=== PATIENT | female | born 1930 | race Caucasian/White ===

== ENCOUNTER 2017-02-28 07:59 | Emergency (ER) | payer MEDICARE, MEDICAID ==
[~2017-02-28] VITALS: Ht 157.5 cm; Wt 58.7 kg
[2017-02-28] MEDS ORDERED: ASPIRIN 81 MG CHEW TABLET PO ONE (08:30)
[2017-02-28] MEDS ORDERED: HYDR10TAB PO ×2 (08:35→11:03)
[2017-02-28] MEDS ORDERED: AMLO10TA2 PO ×2 (08:35→11:03)
[2017-02-28] MEDS ORDERED: CALC1CAP31 PO ×2 (08:35→11:03)
[2017-02-28] MEDS ORDERED: OMEP20CA3 PO ×2 (08:35→11:03)
[2017-02-28] MEDS ORDERED: ALLO100T PO (08:35)
[2017-02-28] MEDS ORDERED: LISI40TAB PO ×2 (08:35→11:03)
[2017-02-28] MEDS ORDERED: PROAAER10 INH ×2 (08:35→11:03)
[2017-02-28] MEDS ORDERED: ATOR1TAB21 PO ×2 (08:35→11:03)
[2017-02-28] MEDS ORDERED: LEVO25TA5 PO (08:35)
[2017-02-28] MEDS ORDERED: METO50TA7 PO ×2 (08:35→11:03)
[2017-02-28 09:05] LABS: BASO % 0.4 % (0.0-1.0); EOS # 0.5 K/mm3 (0.0-0.50); EOS % 5.7 % (0.0-3.0); LARGE UNSTAINED CELL # 0.2 K/mm3 (0.0-0.4); LARGE UNSTAINED CELL % 1.7 % (0.0-4.0); LYMPH # 1.4 K/mm3 (1.5-4.5); LYMPH % 15.8 % (24.0-44.0); MEAN CORPUSCULAR HGB CONC 33.1 g/dl (32.0-36.5); MEAN CORPUSCULAR VOLUME 93.8 fl (80.0-96.0); MONO # 0.5 K/mm3 (0.0-0.8); MONO % 5.1 % (0.0-5.0); NEUTROPHILS # 6.3 K/mm3 (1.8-7.7); NEUTROPHILS % 71.5 % (36.0-66.0); PLATELET COUNT, AUTOMATED 241 k/mm3 (150-450); WHITE BLOOD COUNT 8.8 K/mm3 (4.0-10.0)
[2017-02-28 09:13] LABS: ALBUMIN 3.8 GM/DL (3.2-5.2); ALBUMIN/GLOBULIN RATIO 1.23 (1.00-1.93); ALKALINE PHOSPHATASE 56 U/L (45-117); ALT/SGPT 14 U/L (12-78); ANION GAP 12 MEQ/L (8-16); AST/SGOT 11 U/L (15-37); BILIRUBIN,DIRECT < 0.1 MG/DL (0.0-0.2); BILIRUBIN,TOTAL 0.4 MG/DL (0.2-1.0); BLOOD UREA NITROGEN 63 MG/DL (7-18); CARBON DIOXIDE LEVEL 30 MEQ/L (21-32); CHLORIDE LEVEL 104 MEQ/L (98-107); CREATININE FOR GFR 2.35 MG/DL (0.55-1.02); GLOMERULAR FILTRATION RATE 20.8 (>32); GLUCOSE, FASTING 96 MG/DL (83-110); POTASSIUM SERUM 3.5 MEQ/L (3.5-5.1); SODIUM LEVEL 146 MEQ/L (136-145); TOTAL PROTEIN 6.9 GM/DL (6.4-8.2)
--- NOTE | 2017-02-28 09:49 | REP ---
Clinical: Chest pain . Comparison: 04/21/2016 . Technique: AP view Findings: The mediastinum and cardiac silhouette are normal. The lung bailon are clear and without acute consolidation, effusion, or pneumothorax. The skeletal structures are intact and normal. Impression: 1. No acute cardiopulmonary process. Signed by Luis Goins MD 02/28/2017 09:41 A
--- NOTE | 2017-02-28 09:55 | REP ---
Clinical: Chest pain radiating to the back. Findings: The lung bailon demonstrate mild to moderate emphysematous changes and chronic, age appearing interstitial changes with scattered scarring and minimal perihilar bronchiectasis. No focal consolidation, obvious nodule or mass lesion appreciated. No pleural effusion/reaction or pneumothorax. Evaluation of the mediastinum demonstrates significant atherosclerotic changes to the thoracic aorta and coronary arteries without aortic aneurysm, cardiomegaly or pericardial effusion. No axillary, hilar, or mediastinal adenopathy. Musculoskeletal structures demonstrate age-related degenerative change without focal osseous abnormality. Impression: 1. Moderate chronic scarring, interstitial changes and COPD/emphysematous changes with scattered bullae. 2. Significant atherosclerotic changes to the thoracic aorta and coronary arteries without aortic aneurysm. 3. No acute mediastinal or pleuroparenchymal process. Signed by Luis Goins MD 02/28/2017 09:47 A
[2017-02-28] MEDS ORDERED: NITROGLYCERIN 0.3 MG SUBL TAB SL STA (10:00)
--- NOTE | 2017-02-28 10:02 | REP ---
Clinical: Epigastric and abdominal pain radiating to the back. Findings: Lung bases demonstrate chronic changes and scarring along with mild to moderate emphysematous disease. Atherosclerotic changes to the thoracoabdominal aorta and branch vessels noted with ectasia to the infrarenal abdominal aorta measuring 2.7 cm maximal diameter. Liver, spleen, pancreas, and bilateral adrenal glands are normal. The gallbladder is moderately distended and demonstrates gallstones without wall thickening or pericholecystic fluid to suggest acute cholecystitis. The right kidney is atrophic and bilateral polycystic kidney disease is appreciated including hyperdense lesions in the left kidney likely representing complex cysts. There is no evidence for hydroureteronephrosis. The enteric system is without obstruction or acute inflammatory process. Moderate fecal stasis and constipation is appreciated along with fecal impaction to the rectum distended to 6.7 cm maximal diameter. Colonic and sigmoid diverticulosis noted without acute diverticulitis. Normal terminal ileum and appendix identified in the right lower quadrant. Pelvis demonstrates normal bladder and age-appropriate uterus/adnexa. No ascites. No free air. No adenopathy. No obvious mass lesion. Musculoskeletal structures demonstrate age-related degenerative changes without focal osseous abnormality. Impression: 1. Extensive atherosclerotic changes to the aorta and vasculature including infrarenal abdominal aortic ectasia to 2.7 cm maximal diameter. 2. Polycystic appearance of the bilateral kidneys with atrophic right kidney and presumed high density/complex left renal cysts. 3. Fecal stasis and a moderate fecal impaction at the rectum distended to 6.7 cm maximal diameter. 4. Diverticulosis without acute diverticulitis. 5. No ascites, adenopathy, free air, or mass lesion appreciated. Signed by Luis Goins MD 02/28/2017 09:53 A
[2017-02-28] MEDS ORDERED: hydrALAZINE INJ 20 MG/ML VIAL IV STA (10:33)
[2017-02-28] MEDS ORDERED: ALLO10TA PO (11:03)
[2017-02-28] MEDS ORDERED: IRON18TA PO (11:03)
[2017-02-28] MEDS ORDERED: GARL10004 PO (11:03)
[2017-02-28] MEDS ORDERED: CRAN250C2 PO (11:03)
[2017-02-28] MEDS ORDERED: LEVO25TA34 PO (11:03)
[2017-02-28] MEDS ORDERED: VITA100T PO (11:03)
[2017-02-28] MEDS ORDERED: [UNRECOGNIZED DRUG - CODE] PO (11:03)
[2017-02-28] MEDS ORDERED: HYDR25TAB PO (11:03)
[2017-02-28] MEDS ORDERED: TYLE325T5 PO (11:03)
[2017-02-28] MEDS ORDERED: METOPROLOL SUCC (TopROL XL) 50MG **XL** TAB PO ONE (12:15)
[2017-02-28] MEDS ORDERED: amLODIPine 5 MG TAB PO ONE (12:15)
[2017-02-28] MEDS ORDERED: PERCOCET 5MG/325MG TAB PO ONE (12:15)
[2017-02-28] MEDS ORDERED: hydroCHLOROthiazide 25 MG TAB PO ONE (12:15)
[2017-02-28] MEDS ORDERED: FUROSEMIDE 20 MG/2 ML VIAL (J1940) IV ONE (12:30)
[2017-02-28 12:37] VITALS: BP 191/79
[2017-02-28 14:35] VITALS: BP 161/72
--- NOTE | 2017-02-28 18:27 | ECGEPIP ---
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 RBBB SEPTAL MYOCARDIAL INFARCTION, PROBABLY OLD Electronically Signed On 02-28-2017 18:27:15 EDT by Vaibhav Fine
== END 2017-02-28 14:38 | disposition home or self-care (01) ==
LOC: M ED 07:59
DX: R07.9 Chest pain, unspecified (principal); I10 Essential (primary) hypertension; Z87.891 Personal history of nicotine dependence
CPT/HCPCS: 71010; 71250; 74176; 80048; 80076; 82550; 82553; 83690; 83880; 84443; 84484; 85025; 93005; 93041; 94760; 96374; 96375; 99285; J1940

== ENCOUNTER → 2017-09-18 | Outpatient (REF) | payer MEDICARE, MEDICAID ==
[2017-09-18 19:16] LABS: CHOLESTEROL LEVEL 163 MG/DL (<200); CHOLESTEROL RISK RATIO 3.075 (<5); HDL CHOLESTEROL 53 MG/DL (>40); LDL CHOLESTEROL 89.6 MG/DL (<100); NON-HDL-C 110 MG/DL; TRIGLYCERIDES LEVEL 102 MG/DL (<150)
[2017-09-20 11:02] LABS: HEPATITIS B SURFACE ANTIBODY NEGATIVE (POSITIVE)
[2017-09-20 11:12] LABS: HEPATITIS B SURFACE ANTIGEN NEGATIVE (NEGATIVE)
[2017-09-20 11:33] LABS: HEPATITIS B CORE ANTIBODY IGM NEGATIVE (NEGATIVE)
[2017-09-20 11:35] LABS: HEPATITIS C VIRUS ABY INDEX 0.2 INDEX (<0.8)
== END ==
LOC: M LAB REF 18:07
DX: N18.5 Chronic kidney disease, stage 5 (principal)
CPT/HCPCS: 86706

== ENCOUNTER → 2017-09-24 | Outpatient (CLI) | payer MEDICARE, MEDICAID ==
[~2017-09-24] MED LIST: HEPARIN 1,000 UNITS/ML 10ML VIAL (FOR RADIOLOGY& DIALYSIS ONLY) As Ordered; LIDOCAINE 2% MDV 20 ML VIAL As Ordered
== END | disposition home or self-care (01) ==
LOC: M IRPRO 08:17
DX: I12.0 Hypertensive chronic kidney disease with stage 5 chronic kidney disease or end stage renal disease (principal); N18.6 End stage renal disease; I70.0 Atherosclerosis of aorta; J44.9 Chronic obstructive pulmonary disease, unspecified; Z87.891 Personal history of nicotine dependence
CPT/HCPCS: 36558

== ENCOUNTER 2017-09-27 11:06 | Inpatient (IN) | payer MEDICARE, MEDICAID ==
[2017-09-27] MEDS: methylPREDNISolone INJ 125 MG/2 ML VIAL (J2930) IV ×2 (11:39→20:47)
[2017-09-27] MEDS: IPRATROPIUM 0.5MG/ALBUTEROL 2.5MG INH SOL UD 3ML (DUONEB)(J7620) NEB ×4 (11:53→20:00)
[2017-09-27 11:54] LABS: BASO % 0.2 % (0.0-1.0); EOS # 0.6 10^3/uL (0.0-0.50); EOS % 6.3 % (0.0-3.0); HEMATOCRIT 27.5 % (36.0-47.0); HEMOGLOBIN 8.3 g/dl (12.0-15.5); IMMATURE GRANULOCYTE % 0.5 % (0-3.0); LYMPH # 0.8 10^3/uL (1.5-4.5); LYMPH % 8.3 % (24.0-44.0); MEAN CORPUSCULAR HEMOGLOBIN 30.5 pg (27.0-33.0); MEAN CORPUSCULAR HGB CONC 30.2 g/dl (32.0-36.5); MEAN CORPUSCULAR VOLUME 101.1 fl (80.0-96.0); MONO # 0.6 10^3/uL (0.0-0.8); MONO % 6.8 % (0.0-5.0); NEUTROPHILS # 7.1 10^3/uL (1.8-7.7); NEUTROPHILS % 77.9 % (36.0-66.0); PLATELET COUNT, AUTOMATED 194 10^3/uL (150-450); RED BLOOD COUNT 2.72 10^6/uL (4.00-5.40); RED CELL DISTRIBUTION WIDTH 15.4 % (11.5-14.5); WHITE BLOOD COUNT 9.1 10^3/uL (4.0-10.0)
[2017-09-27 12:01] LABS: ABG BASE EXCESS 4.1 (-2.0-2.0); ABG O2 SATURATION 85.1 % (95.0-99.0); ABG PARTIAL PRESSURE CO2 45.7 mmHg (35.0-45.0); ABG PARTIAL PRESSURE O2 50.7 mmHg (75.0-100.0); ABG STANDARD HCO3 27.9 MEQ/L (22.0-26.0); ABG TOTAL CO2 30.4 MEQ/L (23.0-31.0); ABG pH (ARTERIAL) 7.421 UNITS (7.350-7.450)
[2017-09-27 12:19] LABS: LACTIC ACID SEPSIS PROTOCOL 0.9 MMOL/L (0.4-2.0)
[2017-09-27 12:21] LABS: ALBUMIN 3.3 GM/DL (3.2-5.2); ALBUMIN/GLOBULIN RATIO 1.14 (1.00-1.93); ALKALINE PHOSPHATASE 58 U/L (45-117); ALT/SGPT 13 U/L (12-78); ANION GAP 6 MEQ/L (8-16); AST/SGOT 14 U/L (7-37); BILIRUBIN,DIRECT 0.1 MG/DL (0.0-0.2); BILIRUBIN,TOTAL 0.5 MG/DL (0.2-1.0); BLOOD UREA NITROGEN 64 MG/DL (7-18); CALCIUM LEVEL 9.4 MG/DL (8.8-10.2); CARBON DIOXIDE LEVEL 33 MEQ/L (21-32); CHLORIDE LEVEL 107 MEQ/L (98-107); CPK CREATINE PHOSPHOKINASE 59 U/L (26-192); CREATININE FOR GFR 2.97 MG/DL (0.55-1.30); GLOMERULAR FILTRATION RATE 15.8 (>32); GLUCOSE, FASTING 87 MG/DL (70-100); POTASSIUM SERUM 4.6 MEQ/L (3.5-5.1); SODIUM LEVEL 146 MEQ/L (136-145); TOTAL PROTEIN 6.2 GM/DL (6.4-8.2); TROPONIN I < 0.02 NG/ML (< 0.10)
[2017-09-27 12:26] LABS: PROTHROMBIN TIME 13.3 SECONDS (12.4-14.5)
[2017-09-27 12:27] LABS: CK-MB VALUE MASS 2.6 NG/ML (<3.6); NT-PRO BNP 8931 PG/ML (<450)
[2017-09-27] MEDS ORDERED: IPRATROPIUM 0.5MG/ALBUTEROL 2.5MG INH SOL UD 3ML (DUONEB)(J7620) NEB (13:00)
[2017-09-27] MEDS: MOXIFLOXACIN HCL 400 MG in APPROPRIATE DILUENT 1 EA IV (13:12)
[2017-09-27] MEDS: FUROSEMIDE 100 MG/10 ML VIAL (J1940) IV (13:12)
[2017-09-27 14:41] LABS: FERRITIN 255 NG/ML (8-252); IRON (FE) 31 UG/DL (50-170); TOTAL IRON BINDING CAPACITY 238 UG/DL (250-450)
[2017-09-27 15:10] LABS: VITAMIN B12 LEVEL > 2000 PG/ML (247-911)
[2017-09-27 15:11] LABS: FOLATE 8.8 NG/ML (>5.4)
[2017-09-27] MEDS ORDERED: SLF 3 ML SYR IV (16:30)
[2017-09-27] MEDS: SIMVASTATIN 20 MG TAB PO (18:05)
[2017-09-27] MEDS: OMEPRAZOLE 20 MG CAP PO (18:05)
[2017-09-27] MEDS: amLODIPine 10 MG TAB PO (18:06)
[2017-09-27 18:20] LABS: HEMATOCRIT 28.1 % (36.0-47.0); HEMOGLOBIN 8.4 g/dl (12.0-15.5); MEAN CORPUSCULAR HEMOGLOBIN 29.8 pg (27.0-33.0); MEAN CORPUSCULAR HGB CONC 29.9 g/dl (32.0-36.5); MEAN CORPUSCULAR VOLUME 99.6 fl (80.0-96.0); PLATELET COUNT, AUTOMATED 196 10^3/uL (150-450); RED BLOOD COUNT 2.82 10^6/uL (4.00-5.40); RED CELL DISTRIBUTION WIDTH 15.3 % (11.5-14.5); WHITE BLOOD COUNT 7.2 10^3/uL (4.0-10.0)
[2017-09-27 18:37] LABS: CPK CREATINE PHOSPHOKINASE 56 U/L (26-192); TROPONIN I < 0.02 NG/ML (< 0.10)
[2017-09-27 18:38] LABS: CK-MB VALUE MASS 2.4 NG/ML (<3.6); MB/CK RELATIVE INDEX 4.28 (< OR =4)
[2017-09-27] MEDS: **hydrALAZINE** 10 MG TAB PO (20:46)
[2017-09-27] MEDS: METOPROLOL TART 50 MG TAB PO (20:46)
[2017-09-27] MEDS: SLF 3 ML SYR IV (20:47)
[2017-09-28] MEDS: IPRATROPIUM 0.5MG/ALBUTEROL 2.5MG INH SOL UD 3ML (DUONEB)(J7620) NEB ×6 (01:00→23:18)
[2017-09-28] MEDS: methylPREDNISolone INJ 125 MG/2 ML VIAL (J2930) IV ×3 (04:02→20:45)
[2017-09-28] MEDS: LEVOTHYROXINE 25MCG TABLET (0.025MG) PO (06:11)
[2017-09-28] MEDS: SLF 3 ML SYR IV ×3 (06:11→21:03)
[2017-09-28] MEDS: METOPROLOL TART 50 MG TAB PO ×2 (08:43→20:44)
[2017-09-28] MEDS: SIMVASTATIN 20 MG TAB PO (08:43)
[2017-09-28] MEDS: ALLOPURINOL 100 MG TAB PO (08:43)
[2017-09-28] MEDS: **hydrALAZINE** 10 MG TAB PO ×2 (08:43→20:45)
[2017-09-28] MEDS: OMEPRAZOLE 20 MG CAP PO (08:43)
[2017-09-28] MEDS: amLODIPine 10 MG TAB PO (08:44)
[2017-09-28] MEDS: TORSEMIDE 20 MG TAB PO (09:00)
[2017-09-28 09:36] LABS: BASO % 0.1 % (0.0-1.0); HEMATOCRIT 26.7 % (36.0-47.0); IMMATURE GRANULOCYTE % 0.6 % (0-3.0); LYMPH # 0.3 10^3/uL (1.5-4.5); LYMPH % 2.3 % (24.0-44.0); MEAN CORPUSCULAR HEMOGLOBIN 29.5 pg (27.0-33.0); MEAN CORPUSCULAR VOLUME 98.5 fl (80.0-96.0); MONO # 0.1 10^3/uL (0.0-0.8); MONO % 0.7 % (0.0-5.0); NEUTROPHILS % 96.3 % (36.0-66.0); PLATELET COUNT, AUTOMATED 199 10^3/uL (150-450); RED BLOOD COUNT 2.71 10^6/uL (4.00-5.40); RED CELL DISTRIBUTION WIDTH 15.4 % (11.5-14.5); WHITE BLOOD COUNT 13.5 10^3/uL (4.0-10.0)
[2017-09-28 10:11] LABS: ANION GAP 7 MEQ/L (8-16); BLOOD UREA NITROGEN 68 MG/DL (7-18); CALCIUM LEVEL 9.1 MG/DL (8.8-10.2); CARBON DIOXIDE LEVEL 32 MEQ/L (21-32); CHLORIDE LEVEL 104 MEQ/L (98-107); CREATININE FOR GFR 3.26 MG/DL (0.55-1.30); GLOMERULAR FILTRATION RATE 14.2 (>32); GLUCOSE, FASTING 182 MG/DL (70-100); POTASSIUM SERUM 4.5 MEQ/L (3.5-5.1); SODIUM LEVEL 143 MEQ/L (136-145)
[2017-09-28 10:15] LABS: CK-MB VALUE MASS 2.2 NG/ML (<3.6); CPK CREATINE PHOSPHOKINASE 65 U/L (26-192); MB/CK RELATIVE INDEX 3.38 (< OR =4); TROPONIN I 0.02 NG/ML (< 0.10)
[2017-09-28] MEDS: MOXIFLOXACIN HCL 400 MG in APPROPRIATE DILUENT 1 EA IV (11:34)
[2017-09-28] MEDS ORDERED: IRON SUCROSE 100MG 5ML VIAL (J1756 PER 1MG) IV (15:30)
[2017-09-29] MEDS: methylPREDNISolone INJ 125 MG/2 ML VIAL (J2930) IV ×2 (03:28→16:19)
[2017-09-29 05:34] LABS: APPEARANCE, URINE CLEAR (CLEAR); BACTERIA, URINE AUTO NEGATIVE (NEGATIVE); BILIRUBIN, URINE AUTO NEGATIVE (NEGATIVE); BLOOD, URINE BLOOD NEGATIVE (NEGATIVE); COLOR, URINE STRAW (YELLOW); GLUCOSE, URINE (UA) AUTO NEGATIVE (NEGATIVE); KETONE, URINE AUTO NEGATIVE (NEGATIVE); LEUKOCYTE ESTERASE, URINE AUTO NEGATIVE (NEGATIVE); MUCUS, URINE SMALL (NEGATIVE); NITRITE, URINE AUTO NEGATIVE (NEGATIVE); PROTEIN, URINE AUTO 2+ mg/dL (NEGATIVE); RBC, URINE AUTO 1 /HPF (0-3); SPECIFIC GRAVITY URINE AUTO 1.012 (1.002-1.035); SQUAMOUS EPITHELIAL CELL UR AU 0 /HPF (0-6); UROBILINOGEN, URINE AUTO 0.2 mg/dL (0.0-2.0); WBC, URINE AUTO 1 /HPF (0-3)
[2017-09-29] MEDS: SLF 3 ML SYR IV ×3 (06:10→21:04)
[2017-09-29] MEDS: LEVOTHYROXINE 25MCG TABLET (0.025MG) PO (06:10)
[2017-09-29 07:14] LABS: ALBUMIN 3.3 GM/DL (3.2-5.2); ALBUMIN/GLOBULIN RATIO 1.18 (1.00-1.93); ALKALINE PHOSPHATASE 55 U/L (45-117); ALT/SGPT 14 U/L (12-78); ANION GAP 9 MEQ/L (8-16); AST/SGOT 14 U/L (7-37); BILIRUBIN,TOTAL 0.3 MG/DL (0.2-1.0); BLOOD UREA NITROGEN 86 MG/DL (7-18); CALCIUM LEVEL 8.9 MG/DL (8.8-10.2); CARBON DIOXIDE LEVEL 29 MEQ/L (21-32); CHLORIDE LEVEL 108 MEQ/L (98-107); CREATININE FOR GFR 3.29 MG/DL (0.55-1.30); GLOMERULAR FILTRATION RATE 14.1 (>32); GLUCOSE, FASTING 135 MG/DL (70-100); MAGNESIUM LEVEL 2.5 MG/DL (1.8-2.4); POTASSIUM SERUM 4.6 MEQ/L (3.5-5.1); SODIUM LEVEL 146 MEQ/L (136-145); TOTAL PROTEIN 6.1 GM/DL (6.4-8.2)
[2017-09-29] MEDS: IPRATROPIUM 0.5MG/ALBUTEROL 2.5MG INH SOL UD 3ML (DUONEB)(J7620) NEB ×4 (07:32→23:21)
[2017-09-29] MEDS: **hydrALAZINE** 10 MG TAB PO ×2 (09:00→20:47)
[2017-09-29] MEDS: amLODIPine 10 MG TAB PO (09:00)
[2017-09-29] MEDS: METOPROLOL TART 50 MG TAB PO ×2 (09:00→20:47)
[2017-09-29] MEDS: TORSEMIDE 20 MG TAB PO (09:19)
[2017-09-29] MEDS: ALLOPURINOL 100 MG TAB PO (09:19)
[2017-09-29] MEDS: SIMVASTATIN 20 MG TAB PO (09:37)
[2017-09-29] MEDS: OMEPRAZOLE 20 MG CAP PO (09:37)
[2017-09-29] MEDS: MOXIFLOXACIN HCL 400 MG in APPROPRIATE DILUENT 1 EA IV (13:00)
[2017-09-30] MEDS: methylPREDNISolone INJ 125 MG/2 ML VIAL (J2930) IV (04:33)
[2017-09-30 05:31] LABS: HEMATOCRIT 25.5 % (36.0-47.0); HEMOGLOBIN 7.6 g/dl (12.0-15.5); MEAN CORPUSCULAR HEMOGLOBIN 29.9 pg (27.0-33.0); MEAN CORPUSCULAR HGB CONC 29.8 g/dl (32.0-36.5); MEAN CORPUSCULAR VOLUME 100.4 fl (80.0-96.0); PLATELET COUNT, AUTOMATED 191 10^3/uL (150-450); RED BLOOD COUNT 2.54 10^6/uL (4.00-5.40); RED CELL DISTRIBUTION WIDTH 15.1 % (11.5-14.5); WHITE BLOOD COUNT 13.8 10^3/uL (4.0-10.0)
[2017-09-30] MEDS: SLF 3 ML SYR IV ×3 (05:51→23:10)
[2017-09-30] MEDS: LEVOTHYROXINE 25MCG TABLET (0.025MG) PO (05:56)
[2017-09-30 06:07] LABS: ALBUMIN/GLOBULIN RATIO 1.07 (1.00-1.93); ALKALINE PHOSPHATASE 46 U/L (45-117); ALT/SGPT 15 U/L (12-78); ANION GAP 7 MEQ/L (8-16); AST/SGOT 12 U/L (7-37); BILIRUBIN,TOTAL 0.2 MG/DL (0.2-1.0); BLOOD UREA NITROGEN 104 MG/DL (7-18); CALCIUM LEVEL 8.6 MG/DL (8.8-10.2); CARBON DIOXIDE LEVEL 30 MEQ/L (21-32); CHLORIDE LEVEL 108 MEQ/L (98-107); CREATININE FOR GFR 3.47 MG/DL (0.55-1.30); GLOMERULAR FILTRATION RATE 13.2 (>32); GLUCOSE, FASTING 107 MG/DL (70-100); MAGNESIUM LEVEL 2.3 MG/DL (1.8-2.4); POTASSIUM SERUM 4.2 MEQ/L (3.5-5.1); SODIUM LEVEL 145 MEQ/L (136-145); TOTAL PROTEIN 5.8 GM/DL (6.4-8.2)
[2017-09-30] MEDS: OMEPRAZOLE 20 MG CAP PO (07:41)
[2017-09-30] MEDS: ALLOPURINOL 100 MG TAB PO (07:42)
[2017-09-30] MEDS: SIMVASTATIN 20 MG TAB PO (07:42)
[2017-09-30] MEDS: amLODIPine 10 MG TAB PO (07:43)
[2017-09-30] MEDS: **hydrALAZINE** 10 MG TAB PO (07:43)
[2017-09-30] MEDS: METOPROLOL TART 50 MG TAB PO ×4 (07:43→23:28)
[2017-09-30] MEDS: IPRATROPIUM 0.5MG/ALBUTEROL 2.5MG INH SOL UD 3ML (DUONEB)(J7620) NEB ×3 (07:45→18:05)
[2017-09-30] MEDS: FUROSEMIDE 100 MG/10 ML VIAL (J1940) IV (10:09)
[2017-09-30 10:32] LABS: CK-MB VALUE MASS 4.3 NG/ML (<3.6); CPK CREATINE PHOSPHOKINASE 52 U/L (26-192); MB/CK RELATIVE INDEX 8.26 (< OR =4); TROPONIN I 0.03 NG/ML (< 0.10)
[2017-09-30] MEDS: MOXIFLOXACIN HCL 400 MG in APPROPRIATE DILUENT 1 EA IV (12:54)
[2017-09-30 13:05] LABS: HEMATOCRIT 27.8 % (36.0-47.0); HEMOGLOBIN 8.3 g/dl (12.0-15.5)
[2017-09-30 15:24] LABS: CK-MB VALUE MASS 3.8 NG/ML (<3.6); CPK CREATINE PHOSPHOKINASE 45 U/L (26-192); MB/CK RELATIVE INDEX 8.44 (< OR =4); TROPONIN I 0.05 NG/ML (< 0.10)
[2017-09-30] MEDS: predniSONE 20 MG TAB PO (15:30)
[2017-09-30] MEDS: FUROSEMIDE 80 MG TAB PO (18:05)
[2017-09-30 18:45] LABS: HEMATOCRIT 27.3 % (36.0-47.0); HEMOGLOBIN 8.3 g/dl (12.0-15.5)
[2017-10-01] MEDS: IPRATROPIUM 0.5MG/ALBUTEROL 2.5MG INH SOL UD 3ML (DUONEB)(J7620) NEB ×4 (01:40→20:00)
[2017-10-01] MEDS: MOXIFLOXACIN 400 MG TAB PO (05:07)
[2017-10-01] MEDS: METOPROLOL TART 50 MG TAB PO ×4 (05:07→17:05)
[2017-10-01] MEDS: LEVOTHYROXINE 25MCG TABLET (0.025MG) PO (05:07)
[2017-10-01] MEDS: SLF 3 ML SYR IV (05:52)
[2017-10-01 12:30] LABS: IMMEDIATE SPIN CROSSMATCH 1 2
[2017-10-01 12:37] LABS: HEMATOCRIT 26.4 % (36.0-47.0); MEAN CORPUSCULAR HEMOGLOBIN 30.3 pg (27.0-33.0); MEAN CORPUSCULAR HGB CONC 30.3 g/dl (32.0-36.5); PLATELET COUNT, AUTOMATED 203 10^3/uL (150-450); RED BLOOD COUNT 2.64 10^6/uL (4.00-5.40); WHITE BLOOD COUNT 12.1 10^3/uL (4.0-10.0)
[2017-10-01 13:00] LABS: ALBUMIN 3.1 GM/DL (3.2-5.2); ANION GAP 8 MEQ/L (8-16); BLOOD UREA NITROGEN 134 MG/DL (7-18); CALCIUM LEVEL 8.5 MG/DL (8.8-10.2); CARBON DIOXIDE LEVEL 30 MEQ/L (21-32); CHLORIDE LEVEL 106 MEQ/L (98-107); CREATININE FOR GFR 4.02 MG/DL (0.55-1.30); GLOMERULAR FILTRATION RATE 11.2 (>32); GLUCOSE, FASTING 92 MG/DL (70-100); PHOSPHORUS LEVEL 6.2 MG/DL (2.5-4.9); POTASSIUM SERUM 4.2 MEQ/L (3.5-5.1); SODIUM LEVEL 144 MEQ/L (136-145)
[2017-10-01 13:05] LABS: ALBUMIN 3.1 GM/DL (3.2-5.2); ALBUMIN/GLOBULIN RATIO 1.15 (1.00-1.93); ALKALINE PHOSPHATASE 44 U/L (45-117); ALT/SGPT 17 U/L (12-78); ANION GAP 9 MEQ/L (8-16); AST/SGOT 14 U/L (7-37); BILIRUBIN,TOTAL 0.3 MG/DL (0.2-1.0); BLOOD UREA NITROGEN 132 MG/DL (7-18); CALCIUM LEVEL 8.4 MG/DL (8.8-10.2); CARBON DIOXIDE LEVEL 30 MEQ/L (21-32); CHLORIDE LEVEL 105 MEQ/L (98-107); CREATININE FOR GFR 4.04 MG/DL (0.55-1.30); GLOMERULAR FILTRATION RATE 11.1 (>32); GLUCOSE, FASTING 92 MG/DL (70-100); MAGNESIUM LEVEL 2.4 MG/DL (1.8-2.4); POTASSIUM SERUM 4.2 MEQ/L (3.5-5.1); SODIUM LEVEL 144 MEQ/L (136-145); TOTAL PROTEIN 5.8 GM/DL (6.4-8.2)
[2017-10-01] MEDS: HEPARIN 1,000 UNITS/ML 10ML VIAL (FOR RADIOLOGY& DIALYSIS ONLY) XX (14:00)
[2017-10-01] MEDS: amLODIPine 10 MG TAB PO (16:07)
[2017-10-01] MEDS: OMEPRAZOLE 20 MG CAP PO (16:07)
[2017-10-01] MEDS: ALLOPURINOL 100 MG TAB PO (16:07)
[2017-10-01] MEDS: SIMVASTATIN 20 MG TAB PO (16:07)
[2017-10-01] MEDS: predniSONE 20 MG TAB PO (16:08)
[2017-10-01] MEDS: HEPARIN 1,000 UNITS/ML 10ML VIAL (FOR RADIOLOGY& DIALYSIS ONLY) IV (16:12)
[2017-10-02] MEDS: METOPROLOL TART 50 MG TAB PO ×3 (00:14→11:19)
[2017-10-02] MEDS: IPRATROPIUM 0.5MG/ALBUTEROL 2.5MG INH SOL UD 3ML (DUONEB)(J7620) NEB ×3 (01:57→13:41)
[2017-10-02 05:18] LABS: HEMATOCRIT 35.3 % (36.0-47.0); MEAN CORPUSCULAR HEMOGLOBIN 29.3 pg (27.0-33.0); MEAN CORPUSCULAR HGB CONC 30.3 g/dl (32.0-36.5); MEAN CORPUSCULAR VOLUME 96.7 fl (80.0-96.0); PLATELET COUNT, AUTOMATED 180 10^3/uL (150-450); RED BLOOD COUNT 3.65 10^6/uL (4.00-5.40); RED CELL DISTRIBUTION WIDTH 16.6 % (11.5-14.5)
[2017-10-02 05:19] LABS: HEMOGLOBIN 10.7 g/dl (12.0-15.5)
[2017-10-02 05:28] LABS: ALBUMIN/GLOBULIN RATIO 1.03 (1.00-1.93); ALKALINE PHOSPHATASE 45 U/L (45-117); ALT/SGPT 16 U/L (12-78); ANION GAP 8 MEQ/L (8-16); AST/SGOT 12 U/L (7-37); BILIRUBIN,TOTAL 0.3 MG/DL (0.2-1.0); BLOOD UREA NITROGEN 90 MG/DL (7-18); CALCIUM LEVEL 8.1 MG/DL (8.8-10.2); CARBON DIOXIDE LEVEL 27 MEQ/L (21-32); CHLORIDE LEVEL 111 MEQ/L (98-107); CREATININE FOR GFR 3.35 MG/DL (0.55-1.30); GLOMERULAR FILTRATION RATE 13.8 (>32); GLUCOSE, FASTING 139 MG/DL (70-100); POTASSIUM SERUM 3.9 MEQ/L (3.5-5.1); SODIUM LEVEL 146 MEQ/L (136-145); TOTAL PROTEIN 5.9 GM/DL (6.4-8.2)
[2017-10-02] MEDS: LEVOTHYROXINE 25MCG TABLET (0.025MG) PO (06:14)
[2017-10-02] MEDS: MOXIFLOXACIN 400 MG TAB PO (06:14)
[2017-10-02] MEDS: ALLOPURINOL 100 MG TAB PO (08:17)
[2017-10-02] MEDS: predniSONE 20 MG TAB PO (08:17)
[2017-10-02] MEDS: amLODIPine 10 MG TAB PO (08:17)
[2017-10-02] MEDS: SIMVASTATIN 20 MG TAB PO (08:17)
[2017-10-02] MEDS: OMEPRAZOLE 20 MG CAP PO (08:18)
== END 2017-10-02 14:25 | disposition home or self-care (01) | DRG 193 ==
LOC: M ED 11:06 → M ED INP 13:46 → M PCU 15:48
PROC: 02HV33Z Insertion of Infusion Device into Superior Vena Cava, Percutaneous Approach (ICD-10-PCS; 2017-09-24)
PROC: 30253N1 (ICD-10-PCS; 2017-09-30)
PROC: 5A1D70Z Performance of Urinary Filtration, Intermittent, Less than 6 Hours Per Day (ICD-10-PCS; principal; 2017-10-01)
DX: J18.9 Pneumonia, unspecified organism (principal); N18.6 End stage renal disease; I12.0 Hypertensive chronic kidney disease with stage 5 chronic kidney disease or end stage renal disease; J44.0 Chronic obstructive pulmonary disease with (acute) lower respiratory infection; J44.1 Chronic obstructive pulmonary disease with (acute) exacerbation; J96.11 Chronic respiratory failure with hypoxia; I48.0 Paroxysmal atrial fibrillation; E03.9 Hypothyroidism, unspecified; D63.1 Anemia in chronic kidney disease; M10.9 Gout, unspecified; E78.5 Hyperlipidemia, unspecified; K21.9 Gastro-esophageal reflux disease without esophagitis; Z87.891 Personal history of nicotine dependence; S90.32XA Contusion of left foot, initial encounter; W20.8XXA Other cause of strike by thrown, projected or falling object, initial encounter; Y92.9 Unspecified place or not applicable; R01.1 Cardiac murmur, unspecified; Z99.2 Dependence on renal dialysis; Z99.81 Dependence on supplemental oxygen; Z79.899 Other long term (current) drug therapy; Z88.0 Allergy status to penicillin; Z88.2 Allergy status to sulfonamides

== ENCOUNTER → 2017-10-31 | Outpatient (CLI) | payer MEDICARE, MEDICAID ==
[~2017-10-31] MED LIST changes: +ISOVUE-300 61% 50ML VIAL (Q9967) As Ordered; -LIDOCAINE 2% MDV 20 ML VIAL As Ordered; +MIDAZOLAM INJ 2 MG/2 ML VIAL (J2250) As Ordered; +fentaNYL 100 MCG/2 ML INJECTION (J3010) As Ordered
== END | disposition home or self-care (01) ==
LOC: M IRPRO 08:19
DX: T82.42XA Displacement of vascular dialysis catheter, initial encounter (principal); N18.6 End stage renal disease; Z99.2 Dependence on renal dialysis
CPT/HCPCS: 36581

== ENCOUNTER 2017-11-03 08:00 | Observation (INO) | payer MEDICARE, MEDICAID ==
[2017-11-03] MEDS: LIDOCAINE 2% MDV 20 ML VIAL As Ordered (10:04)
[2017-11-03] MEDS: HEPARIN SOD (PORCINE) 5000 UNITS/ML VIAL As Ordered (10:40)
[2017-11-03] MEDS: ISOVUE-300 61% 50ML VIAL (Q9967) As Ordered (10:52)
[2017-11-03 11:10] LABS: ANION GAP 4 MEQ/L (8-16); BLOOD UREA NITROGEN 38 MG/DL (7-18); CALCIUM LEVEL 8.5 MG/DL (8.8-10.2); CARBON DIOXIDE LEVEL 27 MEQ/L (21-32); CHLORIDE LEVEL 114 MEQ/L (98-107); CREATININE FOR GFR 2.97 MG/DL (0.55-1.30); GLOMERULAR FILTRATION RATE 15.8 (>32); GLUCOSE, FASTING 88 MG/DL (70-100); POTASSIUM SERUM 4.4 MEQ/L (3.5-5.1); SODIUM LEVEL 145 MEQ/L (136-145)
[2017-11-03] MEDS ORDERED: fentaNYL 100 MCG/2 ML INJECTION (J3010) As Ordered (11:13)
[2017-11-03] MEDS ORDERED: PROPOFOL 200 MG/20 ML VIAL As Ordered (11:13)
[2017-11-03] MEDS ORDERED: MIDAZOLAM INJ 2 MG/2 ML VIAL (J2250) As Ordered (11:14)
[2017-11-03] MEDS ORDERED: ACETAMINOPHEN TAB 650MG DOSE (2X325MG) PO (11:15)
[2017-11-03] MEDS ORDERED: ALBUTEROL 90 MCG/ACT 8GM HFA INHALER INH (11:15)
[2017-11-03] MEDS ORDERED: fentaNYL 100 MCG/2 ML INJECTION (J3010) IV (11:30)
[2017-11-03] MEDS ORDERED: ONDANSETRON 4MG/2ML VIAL (J2405) IV (11:30)
[2017-11-03] MEDS: LR 1,000 ML IV (11:30)
[2017-11-03] MEDS ORDERED: METOPROLOL TART 50 MG TAB PO (21:00)
[2017-11-04] MEDS ORDERED: LEVOTHYROXINE 25MCG TABLET (0.025MG) PO (06:00)
[2017-11-04] MEDS ORDERED: ALLOPURINOL 100 MG TAB PO (09:00)
[2017-11-04] MEDS ORDERED: SIMVASTATIN 20 MG TAB PO (09:00)
[2017-11-04] MEDS ORDERED: amLODIPine 10 MG TAB PO (09:00)
[2017-11-04] MEDS ORDERED: OMEPRAZOLE 20 MG CAP PO (09:00)
[2017-11-04] MEDS ORDERED: CALCITRIOL 0.25 MCG CAP (S0169) PO (09:00)
[2017-11-04] MEDS ORDERED: LISINOPRIL 40 MG TAB PO (09:00)
== END 2017-11-03 14:50 | disposition home or self-care (01) ==
LOC: M ED INP 08:00 → M MSPAV 08:51
DX: T82.49XA Other complication of vascular dialysis catheter, initial encounter (principal); N18.6 End stage renal disease; I12.0 Hypertensive chronic kidney disease with stage 5 chronic kidney disease or end stage renal disease; D64.9 Anemia, unspecified; J44.9 Chronic obstructive pulmonary disease, unspecified; I25.2 Old myocardial infarction; E78.4 Other hyperlipidemia; Z99.81 Dependence on supplemental oxygen; Z88.0 Allergy status to penicillin; Z88.2 Allergy status to sulfonamides; E03.9 Hypothyroidism, unspecified; K21.9 Gastro-esophageal reflux disease without esophagitis; Z79.899 Other long term (current) drug therapy
CPT/HCPCS: 36581

== ENCOUNTER → 2018-01-15 | Outpatient (CLI) | payer MEDICARE, MEDICAID | LOC: M RAD 10:52 | DX: Z01.818 Encounter for other preprocedural examination (principal); N18.6 End stage renal disease | CPT/HCPCS: G0365 ==

== ENCOUNTER 2018-02-07 08:16 | Day surgery (SDC) | payer MEDICARE, MEDICAID ==
[~2018-02-07 08:16] MED LIST changes: +D5W/0.2% SODIUM CHLORIDE 1,000 ML IV; -HEPARIN 1,000 UNITS/ML 10ML VIAL (FOR RADIOLOGY& DIALYSIS ONLY) As Ordered; -ISOVUE-300 61% 50ML VIAL (Q9967) As Ordered; -MIDAZOLAM INJ 2 MG/2 ML VIAL (J2250) As Ordered; -fentaNYL 100 MCG/2 ML INJECTION (J3010) As Ordered
[2018-02-07] MEDS ORDERED: PROPOFOL 200 MG/20 ML VIAL As Ordered ×18 (08:57→15:04)
[2018-02-07] MEDS ORDERED: fentaNYL 100 MCG/2 ML INJECTION (J3010) As Ordered ×4 (08:57→15:19)
[2018-02-07] MEDS ORDERED: LIDOCAINE 2% INJ 100 MG/5 ML SDV (FOR ANES.) As Ordered ×2 (08:57)
[2018-02-07] MEDS ORDERED: MIDAZOLAM INJ 2 MG/2 ML VIAL (J2250) As Ordered ×2 (08:57)
[2018-02-07] MEDS ORDERED: HEPARIN SOD (PORCINE) 5000 UNITS/ML VIAL As Ordered ×2 (08:57)
[2018-02-07] MEDS ORDERED: ONDANSETRON 4MG/2ML VIAL (J2405) As Ordered ×4 (08:57→15:02)
[2018-02-07] MEDS ORDERED: ROCURONIUM BROMIDE 50 MG/5 ML VIAL As Ordered ×2 (08:58)
[2018-02-07 09:12] LABS: POTASSIUM SERUM 4.3 MEQ/L (3.5-5.1)
[2018-02-07] MEDS ORDERED: ISOVUE-300 61% 50ML VIAL (Q9967) As Ordered ×2 (10:13)
[2018-02-07] MEDS: CLINDAMYCIN 600 MG/50 ML PREMIX BAG As Ordered ×2 (10:51)
[2018-02-07] MEDS: HEPARIN SOD (PORCINE) 5000 UNITS/ML VIAL As Ordered ×2 (11:06)
[2018-02-07] MEDS ORDERED: ePHEDrine SULFATE 25 MG/5 ML(5MG/ML) SYRINGE As Ordered ×2 (13:44)
[2018-02-07 14:00] LABS: TYPE AND SCREEN 1
[2018-02-07] MEDS ORDERED: VASOPRESSIN INJ 20 UNITS/ML VIAL As Ordered ×2 (14:00)
[2018-02-07] MEDS: THROMBIN SOLN 20,000 UNITS KIT As Ordered ×2 (14:16)
[2018-02-07] MEDS: BUPIVACAINE HCL 0.5% 30 ML VIAL As Ordered ×2 (15:30)
[2018-02-07] MEDS: LIDOCAINE 1% SDV INJ 30 ML VIAL As Ordered ×2 (15:30)
[2018-02-07] MEDS: NS 1,000 ML IV ×2 (16:00)
[2018-02-07] MEDS ORDERED: ONDANSETRON 4MG/2ML VIAL (J2405) IV ×2 (16:15)
[2018-02-07] MEDS: PERCOCET 5MG/325MG TAB PO ×4 (16:35→17:05)
== END 2018-02-07 19:05 | disposition home or self-care (01) ==
LOC: M SDC 08:16
DX: N18.6 End stage renal disease (principal); Z79.899 Other long term (current) drug therapy; E78.5 Hyperlipidemia, unspecified; I12.0 Hypertensive chronic kidney disease with stage 5 chronic kidney disease or end stage renal disease; E03.9 Hypothyroidism, unspecified; Z79.02 Long term (current) use of antithrombotics/antiplatelets; M10.9 Gout, unspecified; K21.9 Gastro-esophageal reflux disease without esophagitis; J44.9 Chronic obstructive pulmonary disease, unspecified; Z79.82 Long term (current) use of aspirin
CPT/HCPCS: 34101

== ENCOUNTER 2018-04-15 15:16 | Emergency (ER) | payer MEDICARE, MEDICAID ==
[2018-04-15] MEDS: DERMABOND TOPICAL SKIN ADHESIVE TOP (16:30)
== END 2018-04-15 16:47 | disposition home or self-care (01) ==
LOC: M ED 15:16
DX: S61.215A Laceration without foreign body of left ring finger without damage to nail, initial encounter (principal); W26.9XXA Contact with unspecified sharp object(s), initial encounter; Y92.019 Unspecified place in single-family (private) house as the place of occurrence of the external cause
CPT/HCPCS: 99283